=== PATIENT | male | born 1975 | race Caucasian/White ===

== ENCOUNTER 2017-04-30 14:07 | Emergency (ER) | payer SELFPAY ==
[~2017-04-30 14:07] MED LIST: ACE325 PO; ACE500 PO; ALB17R INH; CAR350 PO; CEP500 PO; CITA-156 PO; CLON1 PO; CYC10 PO; DAR100 PO; DIA5 PO; DICL-195 PO; DOXY-260 PO; ESCI20TA38 PO; ESCI20TA8; HYD2 PO; HYDR-2970 PO; HYDR2TAB41 PO; HYDR4TAB59 PO; IBU200 PO; IBU800 PO; KET10 PO; LEV100 PO; LEVO50TA80 PO; LIS10 PO; LIS20 PO; LISI-368 PO; LOR1 PO; LOR5 PO; LOR5/325 PO; LOR7.5/325 PO; LORA-1455 PO; METH-280 PO; METO50TA19; MULT-1335; NAP500 PO; OLA5 PO; OMEP40CA79 PO; ONDA4TAB PO; OXYC-865 PO; PER PO; PHEN120S18 PO; PHENA100 PO; PRE10 PO; PRE20 PO; SIMV-42 PO; SIMV10TA96 PO; TRA50 PO; TRAM-420 PO
--- NOTE | 2017-04-30 14:12 | ER Report ---
History and Physical Time Seen By MD: 14:11 HPI/ROS CHIEF COMPLAINT: Anxiety HISTORY OF PRESENT ILLNESS:Patient is a 42-year-old male who presents emergency Department with 3 weeks of worsening anxiety. Patient is in between medical care providers but is scheduling an appointment with Lee Castro; patient has been feeling of racing thoughts but no suicidal or homicidal ideation. I was unable to sleep at night is having episodes of panic attacks similar to ones he is experienced in the past. He recently discontinued use of metoprolol which she normally takes for blood pressure because he ran out of the prescription also he is requesting a refill of Lexapro he as he is only 4 tablets remaining. Patient does take Suboxone which she has a supply of secondary to a history of opiate addiction secondary to back pain issue. He is also currently being weaned off of the suboxone; patient does have a history of hypertension but no cardiac history. REVIEW OF SYSTEMS: Respiratory: No cough, no dyspnea. Cardiovascular: No chest pain, no palpitations. Gastrointestinal: No vomiting, no abdominal pain. Musculoskeletal: No back pain. Allergies: Coded Allergies: banana (Verified Allergy, Mild, 11/18/16) kiwi (Verified Allergy, Mild, MOUTH SWELLING, 11/18/16) latex (Verified Allergy, Unknown, 11/18/16) Uncoded Allergies: WALNUTS (Allergy, Mild, MOUTH SWELLING, 03/10/11) Home Meds Active Scripts Alprazolam (XANAX) 0.5 Mg Tablet, 1 TAB PO TID for anxiety, #21 TAB 0 Refills Prov:STEFANI BAILON MD 04/30/17 Escitalopram Oxalate (LEXAPRO) 20 Mg Tablet, 20 MG PO QDAY, #30 TAB 0 Refills Prov:STEFANI BAILON MD 04/30/17 Metoprolol Succinate (METOPROLOL SUCCINATE) 50 Mg Tab.er.24h, 1 TAB PO QDAY, # 30 TAB 0 Refills Prov:STEFANI BAILON MD 04/30/17 Reported Medications Metoprolol Succinate (METOPROLOL SUCCINATE) 50 Mg Tab.er.24h, 1 TAB PO BID, TAB 04/30/17 Buprenorphine Hcl/Naloxone Hcl (SUBOXONE 2 MG-0.5 MG SL FILM) 1 Each Film, 1 EACH SL QDAY, FILM 04/30/17 Escitalopram Oxalate (LEXAPRO) 20 Mg Tablet, 20 MG PO QDAY, TAB 04/30/17 Discontinued Reported Medications Escitalopram Oxalate (ESCITALOPRAM OXALATE) 20 Mg Tablet, QDAY 11/18/16 Metoprolol Succinate (METOPROLOL SUCCINATE) 50 Mg Tab.er.24h, BID 11/18/16 Discontinued Scripts Methocarbamol (METHOCARBAMOL) 750 Mg Tablet, 1500 MG PO QID for m, #20 TAB 0 Refills Prov:STEFANI BAILON MD 11/18/16 Hydrocodone Bit/Acetaminophen (HYDROCODON-ACETAMINOPHEN 5-325) 1 Each Tablet, 1 EACH PO Q4-6H Y for PAIN, #12 TAB 0 Refills TAKE ONE TABLET BY MOUTH EVERY 4-6 HOURS NEEDED FOR PAIN Prov:STEFANI BAILON MD 11/18/16 Past Medical/Surgical History History of chronic back pain currently on Suboxone but being weaned off. History of hypertension ran out of medication. History of anxiety Hx Smoking: Yes Smoking Status: Current: Some Days Smoker Hx Substance Use Disorder: No Hx Alcohol Use: No Constitutional Vital Sign - Last 24 Hours 04/30/17 04/30/17 14:19 15:09 Temp 97.3 Pulse 101 87 Resp 16 16 B/P (MAP) 174/115 157/116 (130) Pulse Ox 94 94 O2 Delivery Room Air Room Air Physical Exam General Appearance: The patient is alert, has no immediate need for airway protection and no current signs of toxicity. Eyes: Pupils equal and round no injection. Respiratory: Chest is non tender, lungs are clear to auscultation. Cardiac: regular rate and rhythm Gastrointestinal: Abdomen is soft and non tender, no masses, bowel sounds normal. Musculoskeletal: Neck: Neck is supple and non tender. Extremities have full range of motion and are non tender. Skin: No rashes or lesions. Psychiatric: No suicidal or homicidal ideation. Thought process is logical and goal-directed. Patient does not seem to be responding to any internal stimuli. Speech is normal Medical Decision Making EKG/Imaging EKG Interpretation EKG shows normal sinus rhythm with a left axis deviation and a slightly prolonged QT interval. EKG is otherwise unremarkable Monitor Interpretation: Normal Sinus Rhythm ED Course/Re-evaluation ED Course 04/30/2017 2:29:49 pm plan at this time will be to perform an EKG. If normal plan will be dispositioned to home with prescriptions for his chronic outpatient medications along with a very short course of Xanax as needed for panic attacks and anxiety. Decision to Disposition Date: Apr 30, 2017 Decision to Disposition Time: 14:56 Depart Departure Latest Vital Signs Vital Signs Date Time Temp Pulse Resp B/P (MAP) Pulse Ox O2 Delivery O2 Flow Rate FiO2 04/30/17 15:09 87 16 157/116 (130) 94 Room Air 04/30/17 14:19 97.3 Impression: Primary Impression: Anxiety Condition: Improved Disposition: HOME OR SELF-CARE Referrals: LEONA NOVOA (PCP) LEE CASTRO Keep your currently scheduled follow-up appointment with Lee Castro New Scripts Alprazolam (XANAX) 0.5 Mg Tablet 1 TAB PO TID for anxiety, #21 TAB 0 Refills Prov: STEFANI BAILON MD 04/30/17 Escitalopram Oxalate (LEXAPRO) 20 Mg Tablet 20 MG PO QDAY, #30 TAB 0 Refills Prov: STEFANI BAILON MD 04/30/17 Metoprolol Succinate (METOPROLOL SUCCINATE) 50 Mg Tab.er.24h 1 TAB PO QDAY, #30 TAB 0 Refills Prov: STEFANI BAILON MD 04/30/17 Patient Instructions: Anxiety (GEN) STEFANI BAILON MD Apr 30, 2017 14:12
[2017-04-30] MEDS ORDERED: METO50TA19 PO ×2 (14:24→14:52)
[2017-04-30] MEDS ORDERED: BUPR1FIL5 SL (14:24)
[2017-04-30] MEDS ORDERED: ESCI20TA38 PO ×2 (14:24→14:52)
[2017-04-30] MEDS ORDERED: METOPROLOL TART 50 MG TAB PO ONE (14:35)
[2017-04-30] MEDS ORDERED: ALPR-429 PO (14:52)
--- NOTE | 2017-04-30 14:58 | EKG ---
FACILITY: [facility] - [place] PATIENT NAME: JV FORREST : [id number] MR: [id number]: [id number] EXAM DATE: ORDERING PHYSICIAN: STEFANI BAILON TECHNOLOGIST: DESTINI Vasquez Reason : ANXIETY Blood Pressure : / mmHG Vent. Rate : 096 BPM Atrial Rate : 096 BPM P-R Int : 142 ms QRS Dur : 108 ms QT Int : 382 ms P-R-T Axes : 073 -33 060 degrees QTc Int : 482 ms Sinus rhythm Possible left atrial enlargement Nonspecific interventricular conduction delay Left axis deviation Prolonged QT Abnormal ECG Confirmed by RODRIGO LOPEZ ([id number] on 05/01/2017 5:45:30 AM Referred By: ADAMARIS Confirmed By:RODRIGO LOPEZ
[2017-04-30 15:09] VITALS: BP 157/116
== END 2017-04-30 15:09 | disposition home or self-care (01) ==
LOC: ER 14:08
DX: F41.9 Anxiety disorder, unspecified (principal)
CPT/HCPCS: 93005; 99282